=== PATIENT | male | born 1955 | race American Indian/Alaskan Native ===

== ENCOUNTER 2021-12-30 12:32 | Outpatient (CLI) | payer OTHER ==
--- NOTE | 2021-12-30 15:17 | Ultrasound Report ---
BILATERAL DIGITAL DIAGNOSTIC MAMMOGRAM CONVENTIONAL, 12/30/2021 BILATERAL LIMITED BREAST ULTRASOUND CLINICAL INFORMATION / INDICATION: Bilateral breast enlargement and subareolar pain. N64.4 TECHNIQUE: Digital bilateral mammographic imaging was performed. Limited ultrasound was performed. COMPARISON: Baseline. FINDINGS: Breast Density: There are scattered areas of fibroglandular density. MAMMOGRAPHIC FINDINGS: No dominant mass, suspicious calcifications, or architectural distortion in ei ther breast. There is mild fibroglandular tissue in both subareolar regions which is fairly symmetric and characteristic of gynecomastia. ULTRASOUND FINDINGS: Targeted ultrasound evaluation was performed of the area of interest. There is mild flame-shaped hypoechoic fibroglandular tissue in both subareolar regions characteristic of gyne comastia. There is no evidence of a mass, posterior shadowing or distortion. IMPRESSION: Bilateral gynecomastia. No mammographic or sonographic evidence of malignancy. Follow up recommendation: Clinical exam BI-RADS Category 2: BENIGN. A "normal" or negative report should not discourage follow up or biopsy of a clinically significant f inding. A written summary of these findings will be mailed to the patient. The patient will be entered into a mammography reporting system which will generate a reminder letter for the patient's next appointmen t at the appropriate interval. According to the [employer], yearly mammograms are recommended starting at age 40 and continuing as long as a woman is in good health. Breast MRI is recommended for women with an smith roximately 20-25% or greater lifetime risk of breast cancer, including women with a strong family his tory of breast or ovarian cancer and women who have been treated for Hodgkin's disease. Signer Name: Vinicius Rockwell MD Signed: 12/30/2021 3:12 PM Workstation Name: [id number]
== END 2021-12-30 12:33 | disposition home or self-care (01) ==
LOC: MAMMO 12:32
PROVIDERS: ATTEND Family Medicine
DX: N62 Hypertrophy of breast (principal); N64.4 Mastodynia
CPT/HCPCS: 77066